=== PATIENT | female | born 1940 | race Caucasian/White ===

== ENCOUNTER 2021-08-07 06:45 | Inpatient (IN) | payer MEDICARE, BC ==
[~2021-08-07] VITALS: Ht 157.5 cm; Wt 64.0 kg
--- NOTE | 2021-08-07 06:55 | NUR ---
PT BIBRA C/O EPIGASTRIC PAIN, N/V/D SINCE 0100 S/P EATING SALMON AT 1800. PT AAOX4 BREATHING EVENLY AND UNLABORED. PT ATTACHED TO MONITOR AND POX. AT BEDSIDE FOR EVAL. RT AC 20G INITATED AND BLOOD SENT TO LAB. PT GIVEN BLANKET AND CALL LIGHT WTIHIN REACH
[2021-08-07] MEDS ORDERED: MORPHINE SULFATE INJ 2 MG/ML DISP.SYRIN IV ONE (07:00)
[2021-08-07] MEDS ORDERED: IV NS 0.9% 1,000 ML BAG IV ONE (07:00)
[2021-08-07] MEDS ORDERED: ONDANSETRON HCL/PF 4 MG/2 ML VIAL IVP ONE (07:00)
[2021-08-07] MEDS ORDERED: ONDANSETRON HCL/PF 4 MG/2 ML VIAL ONE ×3 (07:02→19:20)
[2021-08-07] MEDS ORDERED: MORPHINE SULFATE INJ 4 MG/ML DISP.SYRIN ONE (07:02)
[2021-08-07 07:41] LABS: BASOPHILS # (AUTO) 0.1 K/uL (0.0-0.2); BASOPHILS % (AUTO) 0.5 % (0.0-2.0); EOSINOPHILS % (AUTO) 0.4 % (0.0-6.0); HEMATOCRIT 42 % (33-45); HEMOGLOBIN 14.3 g/dL (11.5-14.8); LYMPHOCYTES # (AUTO) 1.3 K/uL (0.8-4.8); LYMPHOCYTES % (AUTO) 12.4 % (20.0-44.0); MEAN CORPUSCULAR HGB CONC 34 g/dl (31.0-36.0); MEAN CORPUSCULAR VOLUME 96 fL (82-100); MONOCYTES # (AUTO) 0.5 K/uL (0.1-1.30); MONOCYTES % (AUTO) 4.6 % (2.0-12.0); NEUTROPHILS # (AUTO) 8.8 K/uL (1.8-8.9); NEUTROPHILS % (AUTO) 82.1 % (43.0-81.0); PLATELET COUNT (AUTO) 319 K/uL (150-450); RED BLOOD CELL COUNT(AUTO) 4.41 MIL/uL (4.0-5.2); WHITE BLOOD COUNT (AUTO) 10.7 K/uL (4.3-11.0)
[2021-08-07 07:49] LABS: CALCIUM, SERUM 9.5 mg/dL (8.5-10.1); CREATININE 0.8 mg/dL (0.6-1.3)
[2021-08-07 07:54] LABS: ALBUMIN 3.8 g/dL (3.4-5.0); BILIRUBIN,DIRECT 0.2 mg/dL (0.0-0.2); BILIRUBIN,TOTAL 0.6 mg/dL (0.2-1.0); TOTAL PROTEIN, SERUM 7.8 g/dL (6.4-8.2)
[2021-08-07] MEDS ORDERED: IOHEXOL-300 100 ML VIAL IV ONE (08:02)
--- NOTE | 2021-08-07 08:02 | NUR ---
PT IS WHEELED TO CT SCAN VIA [facility].
[2021-08-07] MEDS ORDERED: IV NS 0.9% 250 ML IV ONE (08:03)
--- NOTE | 2021-08-07 08:27 | NUR ---
PT IS BACK FROM THE CT SCAN.
[2021-08-07 08:58] LABS: BILIRUBIN,URINE Negative (NEGATIVE); COLOR,URINE YELLOW (YELLOW); LEUKOCYTE ESTERASE ,URINE Negative (NEGATIVE); NITRITE, URINE Negative (NEGATIVE); PH,URINE 8.5 (5.0-8.0); PROTEIN,URINE Negative (NEGATIVE); UGLUCOSE Negative (NEGATIVE); UROBILINOGEN,URINE 0.2 EU/dL (0.2)
--- NOTE | 2021-08-07 09:20 | NUR ---
MOVE SHEET SUBMITTED AND CALLED FOR BED.
--- NOTE | 2021-08-07 09:23 | NUR ---
CALLED NURSING SUPP FOR M/S BED.
--- NOTE | 2021-08-07 09:33 | NUR ---
PT DAUGHTER HOLD NGT TUBE INSERTION FOR NOW WILL CONSULT PRIMARY MD.
[2021-08-07] MEDS ORDERED: Z GUARD REMEDY 2 OZ OINT TP PRN (10:00)
[2021-08-07] MEDS ORDERED: LORAZEPAM INJ 2 MG/ML VIAL IV PRN (10:00)
[2021-08-07] MEDS ORDERED: IV NS 0.9% 1,000 ML IV PRN (10:00)
[2021-08-07] MEDS ORDERED: MORPHINE SULFATE INJ 2 MG/ML DISP.SYRIN IV PRN (10:00)
--- NOTE | 2021-08-07 10:26 | NUR ---
AT BEDSIDE FOR EVAL.
[2021-08-07] MEDS ORDERED: DIATR MEGLU/DIATRIZOATE SODIUM 120 ML BOTTLE (GASTROGRAPHIN) ONE (10:33)
[2021-08-07] MEDS: PANTOPRAZOLE 40 MG VIAL IV SCH (11:00)
[2021-08-07] MEDS: ENOXAPARIN SODIUM 40 MG/0.4 ML DISP.SYRIN SQ SCH (11:00)
[2021-08-07] MEDS ORDERED: PANTOPRAZOLE 40 MG VIAL ONE (11:10)
[2021-08-07] MEDS ORDERED: ENOXAPARIN SODIUM 40 MG/0.4 ML DISP.SYRIN SQ ONE (11:10)
--- NOTE | 2021-08-07 11:26 | NUR ---
PT IS WHEELED TO RADIOLOGY FOR SMALL BOWEL SERIES.
[2021-08-07] MEDS: ONDANSETRON HCL/PF 4 MG/2 ML VIAL IVP PRN ×2 (13:50→19:24)
[2021-08-07] MEDS: LEVOTHYROXINE SODIUM 88 MCG TABLET PO SCH (13:57)
[2021-08-07] MEDS: CARBIDOPA/LEVODOPA 25/100 MG 1 UDTAB PO SCH ×3 (13:57→21:18)
--- NOTE | 2021-08-07 14:36 | NUR ---
Per Dr. Beckwith order SBFT with 50/50 mix of barium and soluble contrast. Doctor is aware of the contrast being used, Doctor is also aware that the patient may be going to surgery. 75cc Barium and 120cc Gastrografin given orally.
--- NOTE | 2021-08-07 17:43 | NUR ---
BLOOD OR BLOOD BANK TECHNICIAN AT BEDSIDE FOR XRAY.
--- NOTE | 2021-08-07 18:09 | NUR ---
GOT BED ASSIGNMENT 103 AFTER CHANGE OF SHIFT PER HOUSE SUP.
--- NOTE | 2021-08-07 19:42 | NUR ---
ATTEMPTED TO GIVE REPORT. RN STILL IN START OF SHIFT REPORT
--- NOTE | 2021-08-07 19:52 | NUR ---
XRAY AT BEDSIDE
--- NOTE | 2021-08-07 20:08 | NUR ---
GAVE REPORT TO PHOEBE PETIT FOR ARA
[2021-08-07 20:30] VITALS: BP 188/95
--- NOTE | 2021-08-07 20:30 | NUR ---
RN ADMITTING NOTE PATIENT AMBULATED FROM ER TO RM 103-1. PATIENT IS ABLE TO MAKE NEEDS KNOWN, A/O X 4. PATIENT DOES NOT REPORT ANY PAIN OR NAUSEA AT THIS TIME. RAC 20 G PATENT AND INTACT. BREATHING EVEN AND UNLABORED. SKIN ISSUES DOCUMENTED, ORIENTED PATIENT TO RM, RN, AND OPHTHALMOLOGY TECHNICIAN. SAFETY MEASURES IN PLACE: BED LOCKED AND IN LOWEST POSITION, CALL LIGHT WITHIN REACH, SIDE RAILS UP. WILL MONITOR PATIENT CLOSELY.
[2021-08-07] MEDS ORDERED: CARBIDOPA/LEVA CR 25/100MG 1 TAB.SA PO SCH (22:00)
--- NOTE | 2021-08-07 22:00 | NUR ---
RN NOTE SINEMET CR EXTENDED RELEASE NOT AVAILABLE AT THIS TIME. FAXED ORDER TO [facility], NO MED AVAILABLE.
--- NOTE | 2021-08-07 23:40 | NUR ---
2340 DR ALEX MUÑOZ MADE AWARE OF PATIENT'S BP IN THE 190S WITH ORDER MADE. ORDER NOTED AND CARRIED OUT.
[2021-08-08] MEDS: METOPROLOL TARTRATE 50 MG TABLET PO SCH ×2 (00:12→08:31)
--- NOTE | 2021-08-08 00:30 | NUR ---
RN NOTE RHAND IV ACCESS INSERTED, RAC INFILTRATED.
--- NOTE | 2021-08-08 03:57 | NUR ---
RN NOTE PATIENT REMOVED IV ACCESS ON R HAND. WILL INSERT IV ACCESS
[2021-08-08 04:00] VITALS: BP 127/67
[2021-08-08 06:10] LABS: BASOPHILS % (AUTO) 0.2 % (0.0-2.0); EOSINOPHILS % (AUTO) 1.5 % (0.0-6.0); HEMATOCRIT 42 % (33-45); HEMOGLOBIN 14.3 g/dL (11.5-14.8); LYMPHOCYTES # (AUTO) 1.7 K/uL (0.8-4.8); LYMPHOCYTES % (AUTO) 17.7 % (20.0-44.0); MEAN CORPUSCULAR HGB CONC 34 g/dl (31.0-36.0); MEAN CORPUSCULAR VOLUME 97 fL (82-100); MONOCYTES # (AUTO) 0.8 K/uL (0.1-1.30); MONOCYTES % (AUTO) 7.9 % (2.0-12.0); NEUTROPHILS % (AUTO) 72.7 % (43.0-81.0); PLATELET COUNT (AUTO) 325 K/uL (150-450); RED BLOOD CELL COUNT(AUTO) 4.32 MIL/uL (4.0-5.2); WHITE BLOOD COUNT (AUTO) 9.7 K/uL (4.3-11.0)
--- NOTE | 2021-08-08 06:46 | NUR ---
RN CLOSING NOTE PATIENT IN BED, AWAKE. NOT IN ANY APPARENT DISTRESS. BREATHING EVEN AND UNLABORED. INSERTED LAC 22 G IV ACCESS, PATENT AND INTACT. NS AT 75 ML/HR ONGOING. PATIENT COMPLAINED AND OBSERVED TO HAVE MILD LIQUID LIKE STOOLS. NO PAIN AT THIS TIME. SAFETY MEASURES IMPLEMENTED. ALL NEEDS MET AND ATTENDED, ALL ORDERS CARRIED OUT. WILL ENDORSE TO DAY SHIFT NURSE FOR ARA.
[2021-08-08 07:31] LABS: CALCIUM, SERUM 9.1 mg/dL (8.5-10.1); CREATININE 0.8 mg/dL (0.6-1.3); MAGNESIUM 2.4 mg/dL (1.8-2.4); PHOSPHORUS 3.7 mg/dL (2.5-4.9); POTASSIUM 3.4 mmol/L (3.5-5.1)
[2021-08-08 07:37] LABS: THYROID STIMULATING HORMONE 0.363 uIU/mL (0.358-3.74)
--- NOTE | 2021-08-08 07:44 | NUR ---
RN OPENING NOTE Pt is Asleep, arousable to tactile, no respiratory distress, no SOB. Left AC IV site with no s/sx of clean infiltration. On NS IV 75cc/hr. Safety precautions implemented, bed locked in lowest position, call light within reach.
[2021-08-08] MEDS ORDERED: POTASSIUM CHLORIDE 20 MEQ TAB.PRT.SR PO SCH (08:30)
[2021-08-08] MEDS: PANTOPRAZOLE 40 MG VIAL IV SCH (08:31)
[2021-08-08] MEDS: CARBIDOPA/LEVODOPA 25/100 MG 1 UDTAB PO SCH ×2 (08:31→13:51)
[2021-08-08] MEDS: LEVOTHYROXINE SODIUM 88 MCG TABLET PO SCH (08:33)
[2021-08-08] MEDS: ENOXAPARIN SODIUM 40 MG/0.4 ML DISP.SYRIN SQ SCH (08:33)
[2021-08-08] MEDS ORDERED: ATOR10TA PO (10:29)
[2021-08-08] MEDS ORDERED: CARB1TAB21 PO (10:29)
[2021-08-08] MEDS ORDERED: LEVO88TA5 PO (10:29)
[2021-08-08] MEDS ORDERED: CARB1TAB39 PO (10:29)
[2021-08-08] MEDS ORDERED: OMEP20CA15 PO (10:29)
[2021-08-08 13:00] VITALS: BP 131/79
--- NOTE | 2021-08-08 15:30 | NUR ---
BATCH MIXER NOTE Pt is A/O X3-4 with periods of forgetfulness, no respiratory distress, no SOB. D/C paperwork signed and reviewed with patient, medication continue all home medication. Inventory list signed with MONOTYPE SETTER and CN, since patient states she brought a brown purse but not recorded in belonging list. Patient picked up by transportation provided by [facility]. left in stable condition.
== END 2021-08-08 15:32 | DRG 390 ==
LOC: ER 06:54 → TRANSITION 17:44 → MEDSG1 19:14
PROVIDERS: ADMIT Nurse Practitioner Acute Care; ATTEND Nurse Practitioner Acute Care
DX: K56.600 Partial intestinal obstruction, unspecified as to cause (principal); Z90.49 Acquired absence of other specified parts of digestive tract; E78.5 Hyperlipidemia, unspecified; K56.7 Ileus, unspecified; Z20.822 Contact with and (suspected) exposure to COVID-19; Z98.890 Other specified postprocedural states; E89.0 Postprocedural hypothyroidism; Z79.890 Hormone replacement therapy; G20 Parkinson's disease; K44.9 Diaphragmatic hernia without obstruction or gangrene
CPT/HCPCS: 36415; 74250-TC; 80048-TC; 80061-TC; 80076-TC; 83690-TC; 83735-TC; 84100-TC; 84443-TC; 85025-TC; 87081-TC; C9113; G0378; J1650; J2270; J2405; J7030; J7050; Q9963; Q9967; U0003

== ENCOUNTER 2023-06-30 19:17 | Emergency (ER) | payer MEDICARE, BC ==
[~2023-06-30] VITALS: Ht 154.9 cm; Wt 63.0 kg
[~2023-06-30 19:17] MED LIST: ATOR10TA PO; CARB1TAB21 PO; CARB1TAB39 PO; LEVO88TA5 PO; OMEP20CA15 PO
[2023-06-30 21:52] VITALS: BP 124/74; TEMP 98.2; O2SAT 98
== END 2023-06-30 21:52 | disposition home or self-care (01) ==
LOC: ER 19:29
DX: S01.81XA Laceration without foreign body of other part of head, initial encounter (principal); G20 Parkinson's disease; W01.0XXA Fall on same level from slipping, tripping and stumbling without subsequent striking against object, initial encounter; Y93.89 Activity, other specified; Y92.89 Other specified places as the place of occurrence of the external cause; Y99.8 Other external cause status
CPT/HCPCS: 12011; 70450; 71045; 72125; 99284; A6403

== ENCOUNTER 2023-09-18 14:59 | Emergency (ER) | payer MEDICARE, BC ==
[~2023-09-18] VITALS: Ht 152.4 cm; Wt 59.0 kg
[2023-09-18] MEDS ORDERED: ACETAMINOPHEN ES 500 MG TABLET PO ONE (15:30)
[2023-09-18] MEDS ORDERED: ACETAMINOPHEN ES 500 MG TABLET ONE (16:03)
[2023-09-18 19:00] VITALS: BP 114/53; TEMP 98; O2SAT 98
== END 2023-09-18 19:16 ==
LOC: ER 15:01
DX: S00.03XA Contusion of scalp, initial encounter (principal); G20.A1 Parkinson's disease without dyskinesia, without mention of fluctuations; Z90.89 Acquired absence of other organs; W01.0XXA Fall on same level from slipping, tripping and stumbling without subsequent striking against object, initial encounter; Y93.B9 Activity, other involving muscle strengthening exercises; Y92.89 Other specified places as the place of occurrence of the external cause; Y99.8 Other external cause status
CPT/HCPCS: 70450-TC; 72125-TC